=== PATIENT | male | born 1955 | race Caucasian/White ===

== ENCOUNTER → 2016-07-29 | Outpatient (CLI) | payer BC, OTHER ==
[~2016-07-29] MED LIST: ACTOPLUS MET 11 EAC1 PO; AMARYL1 MG PO; AMARYL4 MG PO; ASPIRIN EC81 M1 PO; BACTROBAN NASAL1 GM; BYSTOLIC 5 MG5 M1 PO; BYSTOLIC10 MG PO; CRESTOR10 MG PO; CRESTOR20 MG PO; DIOVAN; DIOVAN HCT 3201 EAC1 PO; DIOVAN40 MG PO; FERREX 150150 MG PO; MOM PO; NITROGLYCERIN0.4 MG SL; PHISOHEX148 ML TP; PLAVIX 75 MG TA75 MG PO; SENOKOT-S1 TA1 PO; UNICOMPLEX M TA1 TA1 PO; VERAMYST10 GM NS; VICODIN PO; VICTOZA0.6 MG/0.1 SQ; ZYRTEC10 M2 PO
== END ==
LOC: HYPER 07:19
DX: I87.2 Venous insufficiency (chronic) (peripheral) (principal); L97.821 Non-pressure chronic ulcer of other part of left lower leg limited to breakdown of skin; L03.116 Cellulitis of left lower limb; R60.0 Localized edema; E11.9 Type 2 diabetes mellitus without complications; I25.10 Atherosclerotic heart disease of native coronary artery without angina pectoris; I10 Essential (primary) hypertension; E78.00 Pure hypercholesterolemia, unspecified

== ENCOUNTER → 2016-08-04 | Outpatient (CLI) | payer BC, OTHER | LOC: HYPER 07:09 | DX: L03.116 Cellulitis of left lower limb (principal); R60.0 Localized edema; I87.2 Venous insufficiency (chronic) (peripheral); E11.9 Type 2 diabetes mellitus without complications; I10 Essential (primary) hypertension; E78.00 Pure hypercholesterolemia, unspecified; Z95.1 Presence of aortocoronary bypass graft; Z72.89 Other problems related to lifestyle; Z79.4 Long term (current) use of insulin ==

== ENCOUNTER → 2016-08-25 | Outpatient (CLI) | payer BC, OTHER | LOC: HYPER 07:14 | DX: S81.802D Unspecified open wound, left lower leg, subsequent encounter (principal); I87.2 Venous insufficiency (chronic) (peripheral); L03.116 Cellulitis of left lower limb; R60.0 Localized edema; I25.10 Atherosclerotic heart disease of native coronary artery without angina pectoris; I10 Essential (primary) hypertension; E78.00 Pure hypercholesterolemia, unspecified; E11.9 Type 2 diabetes mellitus without complications; Z95.1 Presence of aortocoronary bypass graft; Z72.89 Other problems related to lifestyle; X58.XXXD Exposure to other specified factors, subsequent encounter ==

== ENCOUNTER → 2017-11-12 | Outpatient (CLI) | payer BC, OTHER | LOC: HYPER 06:44 | DX: S80.822A Blister (nonthermal), left lower leg, initial encounter (principal); I87.2 Venous insufficiency (chronic) (peripheral); E11.628 Type 2 diabetes mellitus with other skin complications; I25.10 Atherosclerotic heart disease of native coronary artery without angina pectoris; I10 Essential (primary) hypertension; E78.00 Pure hypercholesterolemia, unspecified; G47.33 Obstructive sleep apnea (adult) (pediatric); Z95.1 Presence of aortocoronary bypass graft; Z79.4 Long term (current) use of insulin; X58.XXXA Exposure to other specified factors, initial encounter; Y93.89 Activity, other specified; Y92.89 Other specified places as the place of occurrence of the external cause; Y99.8 Other external cause status ==

== ENCOUNTER → 2017-11-23 | Outpatient (CLI) | payer BC, OTHER | LOC: HYPER 06:59 | DX: S80.822D Blister (nonthermal), left lower leg, subsequent encounter (principal); R60.0 Localized edema; I87.2 Venous insufficiency (chronic) (peripheral); E11.628 Type 2 diabetes mellitus with other skin complications; I25.10 Atherosclerotic heart disease of native coronary artery without angina pectoris; I10 Essential (primary) hypertension; E78.00 Pure hypercholesterolemia, unspecified; G47.33 Obstructive sleep apnea (adult) (pediatric); Z95.1 Presence of aortocoronary bypass graft; Z79.4 Long term (current) use of insulin; X58.XXXD Exposure to other specified factors, subsequent encounter ==

== ENCOUNTER → 2018-12-14 | Outpatient (CLI) | payer BC, OTHER | LOC: HYPER 11-25 06:57 | DX: S80.812A Abrasion, left lower leg, initial encounter (principal); S80.822A Blister (nonthermal), left lower leg, initial encounter; I89.0 Lymphedema, not elsewhere classified; E78.00 Pure hypercholesterolemia, unspecified; G47.33 Obstructive sleep apnea (adult) (pediatric); I25.10 Atherosclerotic heart disease of native coronary artery without angina pectoris; I10 Essential (primary) hypertension; R60.0 Localized edema; I87.2 Venous insufficiency (chronic) (peripheral); Z95.1 Presence of aortocoronary bypass graft; Z79.4 Long term (current) use of insulin; X58.XXXA Exposure to other specified factors, initial encounter; Y93.89 Activity, other specified; Y92.89 Other specified places as the place of occurrence of the external cause; Y99.8 Other external cause status ==

== ENCOUNTER → 2019-01-17 | Outpatient (CLI) | payer BC, OTHER | LOC: HYPER 06:34 | DX: S80.822D Blister (nonthermal), left lower leg, subsequent encounter (principal); I87.2 Venous insufficiency (chronic) (peripheral); E11.9 Type 2 diabetes mellitus without complications; I10 Essential (primary) hypertension; E78.00 Pure hypercholesterolemia, unspecified; I89.0 Lymphedema, not elsewhere classified; I25.10 Atherosclerotic heart disease of native coronary artery without angina pectoris; G47.33 Obstructive sleep apnea (adult) (pediatric); Z95.1 Presence of aortocoronary bypass graft; Z79.4 Long term (current) use of insulin; X58.XXXD Exposure to other specified factors, subsequent encounter ==

== ENCOUNTER 2019-10-22 00:34 | Emergency (ER) | payer BC, OTHER ==
[~2019-10-22] VITALS: Ht 170.2 cm; Wt 145.2 kg
[2019-10-22] MEDS ORDERED: HUMALOG100 UNIT/1 SUBQ (00:46)
[2019-10-22] MEDS ORDERED: TRAJENTA (00:52)
[2019-10-22] MEDS ORDERED: TRADJENTA5 MG (00:53)
[2019-10-22 00:59] LABS: ABSOLUTE NEUTROPHILS 16.4 thou/uL (1.4-8.2); BASOPHILS 0.3 % (0.0-2.0); EOSINOPHILS 0.4 % (0.0-3.0); HEMATOCRIT 46.4 % (42.0-52.0); HEMOGLOBIN 16.6 gm/dL (14.0-18.0); LYMPHOCYTES 4.1 % (24.0-44.0); MCH 33.8 pg (26.0-34.0); MCHC 35.8 g/dL (28.0-37.0); MCV 94.6 fL (80.0-100.0); MONOCYTES 1.9 % (1.0-8.0); PLATELET COUNT 233 thou/uL (150-400); POLYS 93.3 % (36.0-66.0); RDW 13.1 % (10.5-14.5); WBC 17.5 thou/uL (4.0-11.0)
[2019-10-22 01:18] LABS: CALCIUM 8.7 mg/dL (8.5-10.1); CREATININE 1.1 mg/dL (0.7-1.3)
[2019-10-22 01:45] LABS: URINE BILIRUBIN NEGATIVE (Negative); URINE BLOOD NEGATIVE (Negative); URINE CLARITY CLEAR; URINE COLOR YELLOW; URINE GLUCOSE-RANDOM* 3+ (Negative); URINE KETONES NEGATIVE (Negative); URINE LEUKOCYTES-REFLEX NEGATIVE (Negative); URINE NITRITE-REFLEX NEGATIVE (Negative); URINE PROTEIN (DIPSTICK) NEGATIVE (Negative); URINE SPECIFIC GRAVITY 1.015 (1.005-1.035); URINE UROBILINOGEN 0.2 E.U./dl (0.2-1.0)
[2019-10-22] MEDS ORDERED: LEVAQUIN 750 M750 MG PO (02:12)
[2019-10-22 03:32] VITALS: BP 164/70
== END 2019-10-22 03:25 | disposition home or self-care (01) ==
LOC: ER 00:34
PROVIDERS: Emergency Medicine
DX: J18.9 Pneumonia, unspecified organism (principal); R35.0 Frequency of micturition; I10 Essential (primary) hypertension; E11.9 Type 2 diabetes mellitus without complications; E78.00 Pure hypercholesterolemia, unspecified; Z90.89 Acquired absence of other organs; Z79.899 Other long term (current) drug therapy; Z79.82 Long term (current) use of aspirin; Z79.4 Long term (current) use of insulin; Z20.828 Contact with and (suspected) exposure to other viral communicable diseases

== ENCOUNTER → 2019-11-21 | Outpatient (CLI) | payer BC, OTHER ==
[~2019-11-21] MED LIST changes: +HUMALOG100 UNIT/1 SUBQ; +LEVAQUIN 750 M750 MG PO; +TRADJENTA5 MG; +TRAJENTA
== END ==
LOC: HYPER 09:25
PROVIDERS: ATTEND Emergency Medicine
DX: R21 Rash and other nonspecific skin eruption (principal); I87.2 Venous insufficiency (chronic) (peripheral); I89.0 Lymphedema, not elsewhere classified; I25.10 Atherosclerotic heart disease of native coronary artery without angina pectoris; I10 Essential (primary) hypertension; E11.9 Type 2 diabetes mellitus without complications; E78.00 Pure hypercholesterolemia, unspecified; G47.33 Obstructive sleep apnea (adult) (pediatric); Z79.4 Long term (current) use of insulin; Z95.1 Presence of aortocoronary bypass graft

== ENCOUNTER → 2019-12-28 | Outpatient (CLI) | payer BC, OTHER | LOC: SJCVCIMAG 07:50 | PROVIDERS: ATTEND Internal Medicine Cardiovascular Disease | DX: I25.810 Atherosclerosis of coronary artery bypass graft(s) without angina pectoris (principal); I49.3 Ventricular premature depolarization; I48.92 Unspecified atrial flutter; E78.5 Hyperlipidemia, unspecified; E11.9 Type 2 diabetes mellitus without complications; I10 Essential (primary) hypertension; Z79.899 Other long term (current) drug therapy ==

== ENCOUNTER → 2020-01-11 | Outpatient (CLI) | payer BC, OTHER ==
[~2020-01-11] VITALS: Ht 170.2 cm; Wt 124.7 kg
[~2020-01-11] MED LIST changes: +AVAPRO 150 MG150 M1 PO; +FUROSEMIDE 20 M20 MG PO; +JARDIANCE10 MG PO; +OZEMPIC1 MG/0.75 SUBQ
[2020-01-11 07:15] VITALS: BP 144/88
[2020-01-11 07:26] LABS: HEMATOCRIT 45.3 % (42.0-52.0); HEMOGLOBIN 15.9 gm/dL (14.0-18.0); MCH 33.1 pg (26.0-34.0); MCHC 35.1 g/dL (28.0-37.0); MCV 94.5 fL (80.0-100.0); RBC 4.79 mil/uL (4.50-6.00); RDW 12.9 % (10.5-14.5); WBC 8.7 thou/uL (4.0-11.0)
[2020-01-11 07:35] LABS: CALCIUM 8.9 mg/dL (8.5-10.1); CREATININE 0.9 mg/dL (0.7-1.3)
[2020-01-11 07:37] LABS: POTASSIUM 4.5 mmol/L (3.5-5.1)
--- NOTE | 2020-01-11 08:26 | EKG ---
[facility] [place] [address] ELECTROCARDIOGRAM REPORT Name: KATIE SON Room #: REG CL M.#: [id number] Admission: 01/11/20 Attend Phys: Yannick Reyna MD Discharge: Date of : 53 Report #: [id number] THIS REPORT FOR: cc: [facility] - Clinic physician unknown [facility] - Clinic physician unknown Jose Chin MD ~ THIS REPORT FOR: //name// [facility] Test Date: 2020-01-11 Test Time: 07:43:45 Pat Name: KATIE SON Department: Room: Gender: Coordinator Integrated Marketing: [facility] : 1955 Requested By: Jarad Triplett Order Number: [id number] MD: Jose Chin Measurements Intervals [place] Rate: 83 P: MS: QRS: 1 QRSD: 119 T: 23 QT: 385 QTc: 453 Interpretive Statements Atrial fibrillation Nonspecific intraventricular conduction delay Compared to ECG 01/21/2011 07:37:58 Electronically Signed On 01-11-2020 8:26:50 CDT by Jose Chin [email or web address] <ELECTRONICALLY SIGNED> By: Jose Chin MD 01/11/20 0826 2 2 Jose Chin MD /RASHEL
[2020-01-11 14:11] VITALS: BP 121/82
--- NOTE | 2020-01-12 17:23 | CATHLAB ---
[facility] [place] [address] INVASIVE PROCEDURE REPORT Name: KATIE SON Room #: REG RAMIRO RitchieAravindDemarco.#: [id number] Admission: 01/11/20 Attend Phys: Yannick Reyna MD Discharge: Date of : 53 Report #: [id number] THIS REPORT FOR: cc: [facility] - Clinic physician unknown [facility] - Clinic physician unknown Jarad Triplett MD [facility] ~ APPROVED REPORT Study performed: 01/11/2020 07:59:55 Patient Details Patient Status: Out-Patient Room #: The patient is a 64 year-old male Event Personnel Jarad Triplett Seeing Eye Dog Trainer, Velvet Miller RN RN, Altagracia Lainez RTR Scrub, Ursula Chirinos RTR Monitor Procedures Performed Art Access - R femoral artery* Left Heart Cath Coronaries, Bypass Grafts [id number] LHCCORCABG Aortogram Abdominal Peripheral Angio 793102 11714 Initial Mod Sed Same Phys/QHP Gr5y 207048 82133 Mod Sed Same Phys/QHP Ea 776825 Hemostasis w/ Mynx Indication Chest pain Procedure Narrative The Right Groin^ was infiltrated with 1% Lidocaine subcutaneous anesthesia. A PINNACLE 6FR Sheath #[id number] sheath was inserted into the RFA^. Coronary angiography was performed using coronary diagnostic catheters. The right coronary system was accessed and visualized with a JR4 catheter. The left coronary system was accessed and visualized with a JL4 catheter. The left ventricle was accessed and visualized with a PIGTAIL catheter. Left ventriculogram was performed in 30 degree projection. An aortogram of the abdominal aorta was performed. Pre-demployment femoral angiogram was performed . Closure device was deployed with a 6 Fr MYNXGRIP 6/7F #[id number]. The patient tolerated the procedure well and there were no complications associated with the procedure. There was no hematoma. Intraoperative Conscious Sedation Sedation start time: 913 Case end Time: 950 Fentanyl 75 mcg Versed 1.5 mg [facility] [address] [place] [address] INVASIVE PROCEDURE REPORT Name: SONKATIE Room #: REG [facility] [id number] Admission: 01/11/20 Attend Phys: Yannick Reyna, Discharge: Date of : 53 Report #: [id number] Fluoro Time: 3.80 minutes Dose: DAP 40672.20 cGycm2 1631 mGy Contrast Type and Amount: Omnipaque 150 ml Hemodynamics The aortic pressure is 145/65 mmHg with a mean of 59 mmHg. The left ventricular pressure is 147/3 mmHg with a mean of mmHg. The left ventricular end diastolic pressure is 17 mmHg. Conclusion 1. Normal left ventricular size and systolic function EF 55% #2 abdominal aortogram normal caliber aorta mildly ectatic single bilateral renal arteries widely patent. #3 left main mild disease giving rise to an occluded LAD and a circumflex OM which shows retrograde filling of the vein graft which connects to a distal OM branch. No significant occlusive disease in the circumflex OM system #4 tortuous DANIELLE to LAD intact with mild diffuse disease LAD becomes diffusely diseased and atretic at the apex. There is some collateral filling of a PDA via the septal perforators. #5 [place] right coronary artery occluded #6 SVG to PDA occluded #7 SVG is a large sequential graft to what appears to be diagonal ramus and OM system all patent with diffuse disease in the [place] vessels briskly filling no occlusive disease Recommendations and plan: Continue aggressive risk factor modification. There is some collateral filling to the PDA as the graft to the PDA and the [place] system occluded. Somewhat of a codominant circumflex with supplying some inferior lateral. No significant wall motion abnormality. No indication for coronary intervention. <ELECTRONICALLY SIGNED> By: Jarad Triplett MD, FACC 01/12/201721 21 21 Jarad Triplett MD, FACC /INF
== END | disposition home or self-care (01) ==
LOC: CATH 06:28
PROVIDERS: Internal Medicine Cardiovascular Disease; ATTEND Nuclear Medicine Nuclear Cardiology
DX: R07.9 Chest pain, unspecified (principal); I25.810 Atherosclerosis of coronary artery bypass graft(s) without angina pectoris; I77.811 Abdominal aortic ectasia; I87.1 Compression of vein; I87.323 Chronic venous hypertension (idiopathic) with inflammation of bilateral lower extremity; I10 Essential (primary) hypertension; I48.91 Unspecified atrial fibrillation; E11.9 Type 2 diabetes mellitus without complications; E78.00 Pure hypercholesterolemia, unspecified; Z98.890 Other specified postprocedural states; Z79.899 Other long term (current) drug therapy; Z79.4 Long term (current) use of insulin; Z95.1 Presence of aortocoronary bypass graft; Z79.01 Long term (current) use of anticoagulants

== ENCOUNTER → 2020-03-20 | Outpatient (CLI) | payer BC, OTHER | LOC: SJCVCIMAG 09:48 | PROVIDERS: ATTEND Internal Medicine Cardiovascular Disease | DX: I07.1 Rheumatic tricuspid insufficiency (principal); I25.10 Atherosclerotic heart disease of native coronary artery without angina pectoris; E11.9 Type 2 diabetes mellitus without complications; I48.92 Unspecified atrial flutter; Z95.1 Presence of aortocoronary bypass graft ==

== ENCOUNTER → 2020-03-27 | Outpatient (CLI) | payer BC, OTHER ==
[~2020-03-27] MED LIST changes: +NITROSTAT0.4 M1 SUBLING; +XARELTO20 MG PO
== END ==
LOC: LAB 08:01
PROVIDERS: ATTEND Internal Medicine Cardiovascular Disease
DX: Z01.812 Encounter for preprocedural laboratory examination (principal); Z20.828 Contact with and (suspected) exposure to other viral communicable diseases

== ENCOUNTER → 2020-03-29 | Outpatient (CLI) | payer BC, OTHER ==
[~2020-03-29] VITALS: Ht 170.2 cm; Wt 124.7 kg
--- NOTE | 2020-03-29 08:37 | TEE ---
[facility] [place] [address] TRANSESOPHAGEAL ECHOCARDIOGRAM Name: KATIE SON Room #: REG [facility]onald [facility] Center[id number] Admission: 03/29/20 Attend Phys: Sajan Rodriguez MD, Discharge: Date of : 53 Report #: [id number] THIS REPORT FOR: cc: Kiran Brizuela,Sajan Saavedra MD [facility] ~ APPROVED REPORT Study performed: 03/29/2020 07:55:17 EXAM: Transesophageal Echocardiogram Patient Location: CVL/outpatient Status: routine BSA: 2.32 HR: 86 bpm BP: 141/78 mmHg Rhythm: Atrial Fibrillation Other Information Study Quality: Good Indications Atrial Fibrillation Cardioversion. Hx: CABG, DM. Procedure After obtaining informed consent, patient underwent transesophageal echo in the [employer]. Type of Sedation : Conscious Sedation Sedation was administered by CAMELIA Love. Sedation was achieved intravenously with: Versed (6) Fentanyl (75) Transesophageal probe was inserted and advanced into esophagus without difficulty by Sajan Rodriguez MD, FAC. Echo enhancement indication: R/O Septal defect. Echo enhancement agent administered: Agitated Saline The MERISSA was performed without complications. Synchronized Cardioversion acheived with 125 Joules after 1 attempt(s). Rhythm following Synchronized Cardioversion: 125 Throughout the procedure, the blood pressure, pulse oximetry, cardiac rhythm, and rate were monitored. The patient tolerated the procedure without adverse effects. Recovery [facility] [address] [place] [address] TRANSESOPHAGEAL ECHOCARDIOGRAM Name: KATIE SON Room #: REG CL [facility].#: [id number] Admission: 03/29/20 Attend Phys: Sajan Rodriguez, Discharge: Date of : 53 Report #: [id number] from conscious sedation was uneventful and vital signs were stable. Left Ventricle The left ventricle is normal size. Moderate concentric left ventricular hypertrophy. Left ventricular systolic function is mildly decreased. LVEF is 45%. Right Ventricle The right ventricle is normal size. The right ventricular systolic function is normal. Atria Left atrium is moderately dilated. No thrombus is visualized in the left atrium or appendage. No shunting noted with contrast bubble injection. Right atrium is moderately dilated. Aortic Valve The aortic valve is normal in structure. No aortic regurgitation is present. There is no aortic valvular stenosis. Mitral Valve The mitral valve is normal in structure. Moderate mitral regurgitation. Tricuspid Valve The tricuspid valve is normal in structure. Mild tricuspid regurgitation. Pulmonic Valve The pulmonary valve is normal in structure. Pericardium There is no pericardial effusion. <Conclusion> Consent was obtained Timeout was performed Esophageal probe was advanced without any difficulty Normal left ventricular size and wall thickness Left atrial appendage, normal size, no obvious mass or clot detected Mild global hypokinesis, ejection fraction 45% Normal right heart size and function Moderate left atrial enlargement Moderate/central mitral valve insufficiency [facility] [address] [place] [address] TRANSESOPHAGEAL ECHOCARDIOGRAM Name: KATIE SON Room #: REG M.R.#: [id number] Admission: 03/29/20 Attend Phys: Sajan Rodriguez, Discharge: Date of : 53 Report #: [id number] Mild tricuspid valve insufficiency No pericardial effusion Aorta; minimal calcification Patient was successfully cardioverted to normal sinus rhythm with 120 J/ biphasic mode Patient tolerated procedure well. <ELECTRONICALLY SIGNED> By: Sajan Rodriguez MD, FACC 03/29/2036 5 5 Sajan Rodriguez MD, FACC /INF
--- NOTE | 2020-03-29 12:28 | EKG ---
[facility] [address] ELECTROCARDIOGRAM REPORT Name: KATIE SON Room #: REG CLI M.#: [id number] Admission: 03/29/20 Attend Phys: Sajan Rodriguez MD, Discharge: Date of : 53 Report #: [id number] THIS REPORT FOR: cc: Kiran Brizuela Timothy C. 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: [facility] : 1955 Requested By: Sajan Rodriguez Order Number: [id number] MD: Sajan Rodriguez Measurements Intervals [place] Rate: 62 P: -18 DC: 204 QRS: 7 QRSD: 117 T: 17 QT: 478 QTc: 486 Interpretive Statements Sinus rhythm Atrial premature complexes Nonspecific intraventricular conduction delay Compared to ECG 01/11/2020 07:43:45 Atrial premature complex(es) now present Atrial fibrillation no longer present Electronically Signed On 03-29-2020 12:28:01 PRODUCT MARKETING MANAGER by Sajan Rodriguez [email or web address] <ELECTRONICALLY SIGNED> By: Sajan Rodriguez MD, FAC 03/29/20 1228 7 Sajan Rodriguez MD, [facility] /EPI
== END | disposition home or self-care (01) ==
LOC: CATH 06:33
PROVIDERS: ATTEND Internal Medicine
DX: I48.91 Unspecified atrial fibrillation (principal); I08.1 Rheumatic disorders of both mitral and tricuspid valves; I48.92 Unspecified atrial flutter; I10 Essential (primary) hypertension; E78.00 Pure hypercholesterolemia, unspecified; E11.9 Type 2 diabetes mellitus without complications; E78.5 Hyperlipidemia, unspecified; Z98.890 Other specified postprocedural states; Z79.899 Other long term (current) drug therapy; Z79.4 Long term (current) use of insulin; Z79.01 Long term (current) use of anticoagulants; Z95.1 Presence of aortocoronary bypass graft; Z79.82 Long term (current) use of aspirin

== ENCOUNTER → 2020-09-09 | Outpatient (CLI) | payer BC, OTHER | LOC: RAD 14:48 | PROVIDERS: ATTEND Internal Medicine | DX: I65.23 Occlusion and stenosis of bilateral carotid arteries (principal); I25.700 Atherosclerosis of coronary artery bypass graft(s), unspecified, with unstable angina pectoris ==

== ENCOUNTER → 2021-02-17 | Outpatient (CLI) | payer BC, OTHER ==
[~2021-02-17] MED LIST changes: +TRESIBA FL100 UNIT/1 SUBQ
[2021-02-17 09:41] LABS: HEMATOCRIT 45.3 % (42.0-52.0); HEMOGLOBIN 15.8 gm/dL (14.0-18.0); MCH 33.9 pg (26.0-34.0); MCHC 34.8 g/dL (28.0-37.0); MCV 97.3 fL (80.0-100.0); RBC 4.65 mil/uL (4.50-6.00); RDW 13.2 % (10.5-14.5); WBC 6.6 thou/uL (4.0-11.0)
[2021-02-17 09:58] LABS: ALBUMIN 3.6 g/dL (3.4-5.0); CALCIUM 8.8 mg/dL (8.5-10.1); POTASSIUM 4.6 mmol/L (3.5-5.1); TOTAL BILIRUBIN 0.6 mg/dL (0.2-1.0); TOTAL PROTEIN 7.4 g/dL (6.4-8.2)
== END ==
LOC: CAT 09:08
PROVIDERS: ATTEND Internal Medicine Cardiovascular Disease
DX: I48.91 Unspecified atrial fibrillation (principal)

== ENCOUNTER 2021-02-20 06:34 | Observation (INO) | payer BC, OTHER ==
[~2021-02-20] VITALS: Ht 152.4 cm; Wt 119.3 kg
[~2021-02-20 06:34] MED LIST changes: -TRESIBA FL100 UNIT/1 SUBQ
[2021-02-20 07:38] LABS: ABSOLUTE NEUTROPHILS 4.9 thou/uL (1.4-8.2); BASOPHILS 1.3 % (0.0-2.0); EOSINOPHILS 1.7 % (0.0-3.0); HEMATOCRIT 46.5 % (42.0-52.0); LYMPHOCYTES 16.5 % (24.0-44.0); MCH 33.5 pg (26.0-34.0); MCHC 34.3 g/dL (28.0-37.0); MCV 97.5 fL (80.0-100.0); MONOCYTES 10.2 % (1.0-8.0); PLATELET COUNT 208 thou/uL (150-400); POLYS 70.3 % (36.0-66.0); RBC 4.77 mil/uL (4.50-6.00)
[2021-02-20 07:39] LABS: CALCIUM 8.8 mg/dL (8.5-10.1); POTASSIUM 4.2 mmol/L (3.5-5.1)
[2021-02-20 07:46] VITALS: BP 149/72
[2021-02-20 07:46] LABS: ALBUMIN 3.6 g/dL (3.4-5.0); TOTAL BILIRUBIN 0.6 mg/dL (0.2-1.0); TOTAL PROTEIN 7.5 g/dL (6.4-8.2)
[2021-02-20] MEDS ORDERED: TRESIBA FL100 UNIT/1 SUBQ (07:59)
[2021-02-20 09:37] LABS: APTT 22.5 Seconds (24.5-32.8); INR 1.04; PROTIME 11.3 Seconds (10.5-12.1)
--- NOTE | 2021-02-20 14:49 | NUR ---
TOOK OVER CARE FOR THIS PATIENT AFTER TRANSFERRING TO CCU FROM [facility] [employer]. PT REMAIN ON BEDREST FOR 4 HOURS. PATIENT RESTING COMFORTABLY WITH SPOUSE AT BEDSIDE. VITAL SIGNS WNL, DENIES SOA WHILE ON ROOM AIR. SITE CDI, NO HEMATOMA, OR PAIN UPON PALPATION. FALL PRECAUTIONS IN PLACE, CALL LIGHT AND PERSONAL ITEMS WITHIN REACH. WILL CONTINUE TO MONITOR.
--- NOTE | 2021-02-20 15:40 | NUR ---
CARDIAC CATH NURSE REMOVED STOP COCK AT ~1430. HELD HEMOSTASIS; DRESSING APPLIED. PATIENT WILL REMAIN ON BEDREST FOR AN ADDITIONAL HOUR.
[2021-02-20 15:45] VITALS: BP 129/58
--- NOTE | 2021-02-20 17:12 | NUR ---
KEPT PATIENT ON BEDREST FOR ABOUT 5.5 HOURS. AMBULATED PATIENT TO BATHROOM BUT THIS NURSE NOTICED OOZING ON THE DRESSING OF THE RIGHT GROIN. HELD PRESSURE FOR 40 MINUTES; HEMOSTASIS ACHIEVED. CARDIAC CATH NURSE CAME TO ASSESS PATIENT; SHE STATED THAT THE PATIENT WILL BE ON BEDREST FOR THE REST OF THE EVENING AND TO SPLINT THE AREA IF COUGHING OR SNEEZING.
[2021-02-20 19:21] VITALS: BP 122/50
[2021-02-20 23:47] VITALS: BP 121/66
--- NOTE | 2021-02-21 02:57 | NUR ---
ASSUMED PT CARE AT 1900, PT IS ALERT AND ORIENTEDX4, SR/BBB ON TELE, DENIES PAIN OR SOA, R.GROIN SITE CDI, NO HEMATOMA, PT REMAINED ON BEDREST, ASSESSMENTS CHARTED, NO DISTRESS NOTED, WILL CONTINUE TO MONITOR PT PER POC
[2021-02-21 04:09] VITALS: BP 138/85
[2021-02-21 08:25] VITALS: BP 147/52
[2021-02-21 10:33] VITALS: BP 147/52
[2021-02-21 11:52] VITALS: BP 135/59
--- NOTE | 2021-02-21 13:48 | NUR ---
TOOK OVER CARE FOR THIS PATIENT AT 0700. PATIENT RESTING IN BED AT THIS TIME ON ROOM AIR. PATIENT DENIES ANY SOA, CHEST PAIN, DIZZINESS, HEADACHE, OR FATIGUE. CARDIOLOGY HAS CLEARED PATIENT FOR ACTIVITY THIS MORNING. PATIENT DENIES ANY NEEDS AT THIS TIME. FALL PRECAUTIONS IN PLACE AND CALL LIGHT WITHIN REACH. RIGHT GROIN SITE, CDI, NO HEMATOMA NOTED, SENSATION EQUAL BILATERALLY.
--- NOTE | 2021-02-21 13:58 | NUR ---
DISCHARGE EDUCATION PROVIDED TO PATIENT; SPOUSE PRESENT. PATIENT AGREEABLE TO DISCHARGE PLAN. MEDICATION EDUCATION ADMINISTERED TO PATIENT AND SPOUSE. DENIES ANY QUESTIONS AT THIS TIME. DISCHARGED VIA WHEELCHAIR WITH NURSING STAFF VIA PERSONAL VEHICLE.
--- NOTE | 2021-02-24 12:48 | P ---
[facility] [place] [address] PROCEDURE REPORT Name: KATIE SON Room #: 218-P [facility] M.Aravind#: [id number] Admission: 02/20/21 Attend Phys: Jose Chin MD Discharge: 02/21/21 Date of : 53 Report #: [id number] THIS REPORT FOR: cc: Kiran Brizuela Timothy C. DO Couchonnal, Luis F. MD ~ ATRIAL FIBRILLATION ABLATION PREOPERATIVE DIAGNOSIS: Atrial fibrillation. POSTOPERATIVE DIAGNOSES: Atrial fibrillation, atrial flutter. PROCEDURES PERFORMED: 1. Atrial fibrillation ablation, CPT code 38575. 2. 3D mapping, CPT code 07193. 3. Intracardiac echo, CPT code 95219. 4. Second pathway ablation -- CPT code 61344. HISTORY: The patient is a 65-year-old with history of recurrent AFib and atrial flutter, here for ablation. ANESTHESIA: The patient underwent general anesthesia with no anesthesia related complications. DESCRIPTION OF PROCEDURE: The patient underwent an informed consent. We discussed the details of the procedure including the risks, which include but not limited to bleeding, vascular damage, stroke, MT, cardiac perforation. The patient understood these risks and is willing to proceed. The patient was brought to the EP laboratory in fasting and sedated state, prepped and draped in a standard fashion, obtained access to the right femoral vein x 3, placing an 8, 9 and 7-Macedonian short sheath using the modified Seldinger technique. Under fluoroscopy, decapolar catheter was placed in the coronary sinus, ICE catheter was placed in the right atrium. Using intracardiac ultrasound, I visualized that there were 2 left and 2 right pulmonary veins. The patient was systemically heparinized. Transseptal was performed using an SL1 sheath and a [place] needle, which was straightforward and then I exchanged for the Cryosheath and the Lasso catheter was placed in the left atrium and a 3D voltage geometry of the left atrium was created. I then started isolating the pulmonary veins. The left superior pulmonary vein underwent a 4-minute freeze, which resulted in isolation at 200 seconds. An additional 4-minute freeze was performed. Left inferior pulmonary vein underwent a 4-minute freeze and isolating at 30 seconds. Right superior pulmonary vein underwent an initial 180, followed by 130-second freeze, which did not result in isolation. An additional 4-minute freeze was performed, resulting in isolation at [address] [address] PROCEDURE REPORT Name: KATIE SON Room #: 218-P [facility] Kristen Bishop#: [id number] Admission: 02/20/21 Attend Phys: Jose Chin MD Discharge: 02/21/21 Date of : 53 Report #: [id number] The right inferior pulmonary vein underwent a 3-minute freeze isolating at 35 seconds. Next, repeat voltage map was created and all veins were isolated. As such, catheters were pulled to the right atrium and the patient was prepped for atrial flutter ablation. Preablation, the transisthmus conduction time was 65 milliseconds. Ablation was performed at 70 smith, 60 degrees and a continuous drag lesion was performed. I performed an additional line as well. Post-ablation, the transisthmus conduction time was 165 milliseconds with evidence of bidirectional block. As such, the procedure was concluded. There was no pericardial effusion noted. The patient received systemic protamine. Catheters and sheaths were pulled. Hemostasis obtained. CONCLUSION: 1. Successful AFib ablation with isolation of the pulmonary veins. 2. Successful atrial flutter ablation with bidirectional block. <ELECTRONICALLY SIGNED> By: Jose Chin MD 02/24/21 1248 1140 0115 Jose Chin MD /nt
== END 2021-02-21 14:02 | disposition home or self-care (01) ==
LOC: CATH → 2N 12:37
PROVIDERS: ADMIT Internal Medicine Cardiovascular Disease; ATTEND Internal Medicine Cardiovascular Disease
DX: I48.91 Unspecified atrial fibrillation (principal); I48.92 Unspecified atrial flutter; Z20.822 Contact with and (suspected) exposure to COVID-19; I25.10 Atherosclerotic heart disease of native coronary artery without angina pectoris; I10 Essential (primary) hypertension; E78.5 Hyperlipidemia, unspecified; G47.33 Obstructive sleep apnea (adult) (pediatric); I87.2 Venous insufficiency (chronic) (peripheral); Z79.4 Long term (current) use of insulin; Z79.899 Other long term (current) drug therapy; Z79.82 Long term (current) use of aspirin
CPT/HCPCS: 62110; 62900; 65131; 70005